=== PATIENT | female | born 1945 | race Caucasian/White ===

== ENCOUNTER 2017-04-28 09:03 | Outpatient (CLI) | payer MEDICARE, OTHER ==
--- NOTE | 2017-04-28 11:45 | Diagnostic Imaging Report ---
GRACE DELAROSA - OP [facility] [id number] Replaced By [facility] [address] [address] Report Submission Date: Apr 28, 2017 11:34:42 AM FINANCE LEAD Patient Study Name: ALYSSIA ALLEN Date: Apr 28, 2017 9:47:48 AM FINANCE LEAD Modality Type: CT\SR Gender: F Description: CT ABD & PELVIS W/ CON : 49 Institution: [facility] Physician: GRACE DELAROSA - OP Examination: CT Abdomen/pelvis History: Abdominal discomfort Comparison exams: None available Technique: CT Abdomen/pelvis with IV protocol. Findings: Liver demonstrates diffuse low attenuation. No central lesion. Spleen , adrenals, pancreas, kidneys and gallbladder are without gross irregularity. No abnormal enhancement. No gallstone. No suspicious renal calcifications. Ureters do not appear to be dilated in their course through the abdomen and pelvis. Bladder margin within normal limits. Abdominal aorta demonstrates mild peripheral atherosclerotic disease. No aneurysm. Cardiac silhouette is not enlarged. No pericardial effusion. Bowel unopacified limiting evaluation. No abnormal dilation. Stool within the large bowel limiting sensitivity. No mesenteric inflammatory changes or free fluid. Appendix not visualized. No pericecal inflammatory changes. Osseous structures demonstrate degenerative disease including the lumbar spine and pubic symphysis. Lung bases without infiltrate. No effusion. Impression: No abdominal mass or acute inflammatory process. Stool throughout the large bowel - constipation. Fatty liver. No gallstone. No suspicious renal calcifications. No abnormal ureteric dilation. No abnormal bowel dilation or inflammation. Electronically signed on Apr 28, 2017 11:34:42 AM FINANCE LEAD by: Bradford SARABIA
== END 2017-04-28 09:05 ==
LOC: RAD 09:03
PROVIDERS: ATTEND Family Medicine
DX: R10.9 Unspecified abdominal pain (principal); R10.2 Pelvic and perineal pain
CPT/HCPCS: 74177; Q9967